=== PATIENT | female | born 1990 | race Two or more races ===

== ENCOUNTER 2022-06-29 15:16 | Emergency (ER) | payer OTHER ==
[~2022-06-29] VITALS: Ht 154.9 cm; Wt 82.7 kg
[2022-06-29 16:45] VITALS: BP 135/81
[2022-06-29] MEDS ORDERED: KETOROLAC TROMETH 60MG/2ML VIAL IM ONE (17:30)
[2022-06-29] MEDS ORDERED: METH750T22 PO (17:43)
[2022-06-29] MEDS ORDERED: IBUP800T27 PO (17:43)
== END 2022-06-29 17:51 | disposition home or self-care (01) ==
LOC: ER 15:16
DX: S39.012A Strain of muscle, fascia and tendon of lower back, initial encounter (principal); W00.2XXA Other fall from one level to another due to ice and snow, initial encounter; Y93.89 Activity, other specified; Y92.524 Gas station as the place of occurrence of the external cause; Y99.8 Other external cause status
CPT/HCPCS: 72100; 96372; 99283; J1885

== ENCOUNTER 2022-08-15 17:41 | Emergency (ER) | payer OTHER ==
[~2022-08-15] VITALS: Ht 152.4 cm; Wt 83.0 kg
[~2022-08-15 17:41] MED LIST: IBUP800T27 PO; METH750T22 PO
[2022-08-15 19:21] VITALS: BP 127/85
[2022-08-15] MEDS ORDERED: AMOX-277 PO (20:28)
[2022-08-15] MEDS ORDERED: CIPR1SUS8 OT (20:28)
[2022-08-15] MEDS ORDERED: ACET-1158 PO (20:28)
== END 2022-08-15 21:01 | disposition home or self-care (01) ==
LOC: ER 17:41
DX: H60.91 Unspecified otitis externa, right ear (principal); J32.9 Chronic sinusitis, unspecified

== ENCOUNTER 2023-10-27 13:34 | Emergency (ER) | payer OTHER ==
[~2023-10-27] VITALS: Ht 152.4 cm; Wt 77.0 kg
[~2023-10-27 13:34] MED LIST changes: +ACET500T58 PO; +AMOX875T4 PO; +CIPR1SUS8 OT; +IBUP-1456 PO; -IBUP800T27 PO; +METH-1182 PO; -METH750T22 PO
[2023-10-27 15:43] VITALS: BP 115/80; RESP 19; TEMP 99.3; O2SAT 94
[2023-10-27 16:04] VITALS: PULSE 91
[2023-10-27] MEDS: cefTRIAXone SOD 1,000 MG VL IM ONE (16:12)
[2023-10-27] MEDS ORDERED: PROM1SOL4 PO (16:19)
[2023-10-27] MEDS ORDERED: CEPH500C PO (16:19)
== END 2023-10-27 16:30 | disposition home or self-care (01) ==
LOC: ER 13:34
DX: J03.90 Acute tonsillitis, unspecified (principal); J06.9 Acute upper respiratory infection, unspecified; R07.89 Other chest pain
CPT/HCPCS: 71046; 93005; 96372; 99283; J0696